=== PATIENT | female | born 1970 | race Caucasian/White ===

== ENCOUNTER 2018-09-28 10:00 | Emergency (ER) | payer MEDICAID, OTHER ==
[2018-09-28 10:00] VITALS: BMI 31.8
[2018-09-28 10:14] VITALS: BP 141/75; PULSE 90; RESP 18; TEMP 98; O2SAT 99
--- NOTE | 2018-09-28 11:07 | ED PDOC ---
Arrival/HPI - History of Present Illness Narrative History of Present Illness (Text): 09/28/18 11:06 48 y/o F with PMHx of laparoscopic sleeve gastrectomy presents to ED with complaints of R sided gluteal pain with a burning sensation down the right anterior quadricep region that's been ongoing for the course of several months, worse with laying on R side, sitting for prolonged period and deep palpation, mildly improved with ibuprofen. She report no recent trauma to the region. She denies any numbness/tingling/weakness/decreased sensation in the leg. Denies dysuria, hematuria. Denies fevers, chills, headache, dizziness, chest pain, palpitations, shortness of breath, nausea, vomiting, abdominal pain, constipati on, diarrhea, dysuria. Time/Duration: Prior to Arrival Symptom Onset: Gradual Symptom Course: Unchanged Severity Level: Mild Activities at Onset: Rest Context: Sitting <Jeremiah Zuniga - Last Filed: 09/28/18 12:14> <Mian Ricketts - Last Filed: 09/28/18 12:30> - General Chief Complaint: Lower Extremity Problem/Injury Time Seen by Provider: 09/28/18 10:35 Past Medical History - Provider Review Nursing Documentation Reviewed: Yes - Infectious Disease Hx of Infectious Diseases: None - Tetanus Immunization Tetanus Immunization: Unknown - Reproductive Menopause: No - Cardiac Hx Cardiac Disorders: Yes Hx Hypertension: Yes - Pulmonary Hx Respiratory Disorders: No - Neurological Hx Neurological Disorder: No - HEENT Hx HEENT Disorder: No - Renal Hx Renal Disorder: No - Endocrine/Metabolic Hx Endocrine Disorders: No - Hematological/Oncological Hx Blood Disorders: No - Integumentary Hx Dermatological Disorder: No - Musculoskeletal/Rheumatological Hx Musculoskeletal Disorders: No - Gastrointestinal Hx Gastrointestinal Disorders: Yes Hx Gastritis: Yes - Genitourinary/Gynecological Hx Genitourinary Disorders: No - Psychiatric Hx Psychophysiologic Disorder: No Hx Substance Use: No - Surgical History Hx Section: Yes Other/Comment: GASTRIC SLEEVE - Anesthesia Hx Anesthesia: Yes Hx Anesthesia Reactions: No Hx Malignant Hyperthermia: No - Suicidal Assessment Feels Threatened In Home Enviroment: No <Jeremiah Zuniga - Last Filed: 09/28/18 12:14> Family/Social History - Physician Review Nursing Documentation Reviewed: Yes Family/Social History: Unknown Family HX Smoking Status: Never Smoked Hx Alcohol Use: No Hx Substance Use: No Hx Substance Use Treatment: No <Jeremiah Zuniga - Last Filed: 09/28/18 12:14> Allergies/Home Meds <Jeremiah Zuniga - Last Filed: 09/28/18 12:14> <Mian Ricketts - Last Filed: 09/28/18 12:30> Allergies/Adverse Reactions: Allergies No Known Allergies Allergy (Verified 05/26/16 15:07) Home Medications: Home Meds Medication Instructions Recorded Confirmed Losartan/Hydrochlorothiazide 50 tab PO DAILY 04/08/16 09/28/18 [Losartan-Hctz 100-12.5 mg Tab] RX: Omeprazole 40 mg PO ACB 05/26/16 10/27/16 Simvastatin 10 mg PO ONCE 09/28/18 09/28/18 Review of Systems - Review of Systems Constitutional: Normal Eyes: Normal ENT: Normal Respiratory: Normal Cardiovascular: Normal Gastrointestinal: Normal Genitourinary Female: Normal Musculoskeletal: Other (RLE burning gluteal pain) Skin: Normal. absent: Rash Neurological: Normal. absent: Focal Weakness Endocrine: Normal Hemo/Lymphatic: Normal Psychiatric: Normal <Jeremiah Zuniga - Last Filed: 09/28/18 12:14> Physical Exam Vital Signs Reviewed: Yes Vital Signs Temp Pulse Resp BP Pulse Ox 09/28/18 10:10 98.0 F 90 18 141/75 99 Temperature: Afebrile Blood Pressure: Normal Pulse: Regular Respiratory Rate: Normal Appearance: Positive for: Well-Appearing, Non-Toxic, Comfortable Pain Distress: None Mental Status: Positive for: Alert and Oriented X 3 - Systems Exam Head: Present: Atraumatic, Normocephalic Pupils: Present: PERRL Extroacular Muscles: Present: EOMI Conjunctiva: Present: Normal Mouth: Present: Moist Mucous Membranes Neck: Present: Normal Range of Motion Respiratory/Chest: Present: Clear to Auscultation, Good Air Exchange. No: Respiratory Distress, Accessory Muscle Use Cardiovascular: Present: Regular Rate and Rhythm, Normal S1, S2. No: Murmurs Abdomen: No: Tenderness, Distention, Peritoneal Signs Back: Present: Normal Inspection Upper Extremity: Present: Normal Inspection. No: Cyanosis, Edema Lower Extremity: Present: Normal Inspection, NORMAL PULSES, Tenderness (R gluteal region with reproducible pain with palpation of piriformis. ), Neurovascularly Intact, Other (no numbness/tingling along RLE). No: Edema Neurological: Present: GCS=15, CN II-XII Intact, Speech Normal, Normal Sensory Function Skin: Present: Warm, Dry, Normal Color. No: Rashes Psychiatric: Present: Alert, Oriented x 3, Normal Insight, Normal Concentration <Jeremiah Zuniga - Last Filed: 09/28/18 12:14> Vital Signs Temp Pulse Resp BP Pulse Ox 09/28/18 10:10 98.0 F 90 18 141/75 99 <Mian Ricketts - Last Filed: 09/28/18 12:30> Medical Decision Making ED Course and Treatment: 09/28/18 11:47 Impression: 48 y/o F presents to ED with RLE gluteal pain Differential diagnosis includes but is not limited to: RLE sciatica Plan: IM toradol Reassess & dispo Progress Note: 09/28/18 12:13 Pt re-evaluated. Received toradol injection with mild relief. Vital signs stable <Jeremiah Zuniga - Last Filed: 09/28/18 12:14> ED Course and Treatment: Seen and examined with resident. 48 year old F p/w gluteal pain that radiates down back/lateral aspect of thigh. Denies trauma, fever, recent procedures, ur inary or bowel incontinence or retention. - Medication Orders Current Medication Orders: Discontinued Medications Ketorolac Tromethamine (Toradol) 60 mg IM STAT STA Stop: 09/28/18 11:37 Last Admin: 09/28/18 11:57 Dose: 60 mg MAR Pain Assessment Document 09/28/18 11:57 (Rec: 09/28/18 11:57 [id number]) Pain Reassessment Is this a pain reassessment? No Sleep Is patient sleeping during reassessment? No Presence of Pain Presence of Pain Yes Pain Scale Used Protocol: PSCALES Pain Scale Used Numeric Description Intensity of Pain at present 7 IM Administration Charges Document 09/28/18 11:57 EB (Rec: 09/28/18 11:57 [id number]) Charges for Administration # of IM Administrations 1 <Mian Ricketts - Last Filed: 09/28/18 12:30> - PA / [employer] / Resident Statement LAM has reviewed & agrees with the documentation as recorded. MD/DO has examined the patient and agrees with the treatment plan. <Jeremiah Zuniga - Last Filed: 09/28/18 12:14> Disposition/Present on Arrival - Present on Arrival Any Indicators Present on Arrival: No History of DVT/PE: No History of Uncontrolled Diabetes: No Urinary Catheter: No History of Decub. Ulcer: No History Surgical Site Infection Following: None - Disposition Have Diagnosis and Disposition been Completed?: Yes Disposition Time: 11:07 <Jeremiah Zuniga - Last Filed: 09/28/18 12:14> <Mian Ricketts - Last Filed: 09/28/18 12:30> - Disposition Diagnosis: Sciatica of right side without back pain Disposition: HOME/ ROUTINE Condition: GOOD Discharge Instructions (ExitCare): Sciatica (DC), Sciatica Exercises Additional Instructions: Tyler Abad, thank you for letting us take care of you today. The emergency medical care you received today was directed at your acute symptoms. If you were prescribed any medication, please fill it and take as directed. It may take several days for your symptoms to resolve. Return to the Emergency Department if your symptoms worsen, do not improve, or if you have any other problems. Please contact your doctor or call one of the physicians/clinics you have been referred to that are listed on the Patient Visit Information form that is included in your discharge packet. Bring any paperwork you were given at discharge with you along with any medications you are taking to your follow up visit. Our treatment cannot replace ongoing medical care by a primary care provider outside of the emergency department. Thank you for allowing the [facility] team to be part of your care today. Prescriptions: Cyclobenzaprine [Flexeril] 5 mg PO HS PRN #7 tab PRN Reason: Pain, Moderate (4-7) Cyclobenzaprine [Flexeril] 5 mg PO DAILY #7 tab RX: Ibuprofen [Motrin Tab] 600 mg PO DAILY PRN #7 tab PRN Reason: Pain, Moderate (4-7) RX: Ibuprofen [Motrin Tab] 600 mg PO Q6H PRN 7 Days #24 tab PRN Reason: Pain, Moderate (4-7) Forms: [facility] ([facility])
== END 2018-09-28 12:18 | disposition home or self-care (01) ==
LOC: ED 10:00
DX: M54.31 Sciatica, right side (principal)
CPT/HCPCS: 96372; 99282; J1885